=== PATIENT | female | born 1985 | race Caucasian/White ===

== ENCOUNTER 2016-12-11 23:23 | Emergency (ER) | payer MEDICAID ==
[2016-12-12 00:30] VITALS: BP 144/82
--- NOTE | 2016-12-12 00:55 | EDM.PDOC ---
ED HPI GENERAL MEDICAL PROBLEM - General Chief Complaint: Diabetic Complaint Stated Complaint: MEDICAL Time Seen by Provider: 12/12/16 00:29 Source of Information: Reports: Patient History Limitations: Reports: No Limitations - History of Present Illness INITIAL COMMENTS - FREE TEXT/NARRATIVE: History of present illness: [31-year-old female with type 1 diabetes presenting requesting a prescription for long-acting Lantus. She is been a diabetic since she was 13 and recalls that she was on Lantus one time. She's been using a pump but doesn't have the tubing for it she was having complications and took it out and didn't realize she didn't have any tubing for her pump so she's been supplementing with just NovoLog but would like a long-acting insulin until she can get more tubing which rosa to get in a few days. Her sugar prior to coming in was over 300 she gave herself NovoLog and it's now come down to 230 she checked again prior to coming to the ER. She is feeling fine and asymptomatic at this time and has had no illnesses fevers or chills cough or anything.] Review of systems: As per history of present illness and below otherwise all systems reviewed and negative. Past medical history: As per history of present illness and as reviewed below otherwise noncontributory. Surgical history: As per history of present illness and as reviewed below otherwise noncontributory. Social history: No reported history of drug or alcohol abuse. Family history: As per history of present illness and as reviewed below otherwise noncontributory. Physical exam: HEENT: Atraumatic, normocephalic, Lungs: Clear to auscultation, Heart: S1S2, regular, Neuro: Awake, alert, oriented. Diagnostics: [] Therapeutics: [] Impression: [Type 1 diabetes] Plan: [I provided her a vial of Lantus 10 mL and ordered 10 units per 24-hour period her basal rate is 23 units per day and the supplementing that she does with the boluses. She does have plenty of NovoLog available. This should assist in keeping her sugars down but she'll have to check them frequently and supplement as needed with her short acting.] Definitive disposition and diagnosis as appropriate pending reevaluation and review of above. - Related Data Allergies Allergy/AdvReac Type Severity Reaction Status Date / Time No Known Allergies Allergy Verified 12/12/16 00:20 Home Meds: Home Meds Humalog Pump 1 dose SQ ASDIRECTED 12/12/16 [History] Past Medical History HEENT History: Reports: Other (See Below) Other HEENT History: left retina, diabetic retinopathy Psychiatric History: Reports: Depression Endocrine/Metabolic History: Reports: Diabetes, Type I - Infectious Disease History Infectious Disease History: Reports: Chicken Pox - Past Surgical History HEENT Surgical History: Reports: Other (See Below) Other HEENT Surgeries/Procedures: left eye Musculoskeletal Surgical History: Reports: Other (See Below) Other Musculoskeletal Surgeries/Procedures:: trigger finger release Social & Family History - Tobacco Use Smoking Status *Q: Never Smoker Second Hand Smoke Exposure: No - Caffeine Use Caffeine Use: Reports: None - Recreational Drug Use Recreational Drug Use: No ED ROS GENERAL - Review of Systems Review Of Systems: ROS reveals no pertinent complaints other than HPI. ED EXAM GENERAL NO PERIP PULSE - Physical Exam Exam: See Below Course - Vital Signs Last Recorded V/S: Last Vital Signs Temp 35.8 C 12/12/16 00:25 Pulse 86 12/12/16 00:25 Resp 16 12/12/16 00:25 BP 144/82 H 12/12/16 00:25 Pulse Ox 100 12/12/16 00:25 Departure - Departure Time of Disposition: 00:53 Disposition: Home, Self-Care 01 Condition: Good Clinical Impression: Type 1 diabetes mellitus Qualifiers: Diabetes mellitus complication status: without complication Qualified Code(s): E10.9 - Type 1 diabetes mellitus without complications - Discharge Information Forms: ED Department Discharge Additional Instructions: I wish you well on your trip to [place]. As you know he will need to frequently check your blood sugar and use her NovoLog to keep it in a reasonable range.
== END 2016-12-12 01:03 | disposition home or self-care (01) ==
LOC: JP.ED 23:23
DX: E10.9 Type 1 diabetes mellitus without complications (principal)
CPT/HCPCS: 99283